=== PATIENT | male | born 1970 | race Caucasian/White ===

== ENCOUNTER → 2023-08-16 06:29 | Day surgery (SDC) | payer OTHER, SELFPAY | LOC: GI 06:29 | PROVIDERS: ATTENDING PHYSICIAN Internal Medicine Gastroenterology | DX: Z12.11 Encounter for screening for malignant neoplasm of colon (principal); K57.30 Diverticulosis of large intestine without perforation or abscess without bleeding; K64.0 First degree hemorrhoids; D12.0 Benign neoplasm of cecum; D12.3 Benign neoplasm of transverse colon; Z80.0 Family history of malignant neoplasm of digestive organs | CPT/HCPCS: 45385; 45381; 45380; 88305 ==

== ENCOUNTER 2023-10-18 06:21 | Day surgery (SDC) | payer OTHER, SELFPAY ==
[2023-10-18 06:55] VITALS: BMI 33.7
[2023-10-18 07:02] VITALS: BP 139/83
[2023-10-18 07:11] VITALS: BMI 33.7
[2023-10-18 09:20] VITALS: BP 92/59
[2023-10-18 09:35] VITALS: BP 98/60
[2023-10-18 09:50] VITALS: BP 104/78
== END 2023-10-18 10:09 | disposition home or self-care (01) ==
LOC: GI 06:21
PROVIDERS: ATTENDING PHYSICIAN Internal Medicine Gastroenterology
DX: D12.3 Benign neoplasm of transverse colon (principal); K57.30 Diverticulosis of large intestine without perforation or abscess without bleeding; K64.0 First degree hemorrhoids
CPT/HCPCS: 45390; 88305

== ENCOUNTER → 2024-05-09 06:18 | Day surgery (SDC) | payer OTHER, SELFPAY ==
[2024-05-09 09:34] LABS: Glucose - Point of Care 99 mg/dl (70-99)
== END ==
LOC: GI 06:18
PROVIDERS: ATTENDING PHYSICIAN Internal Medicine Gastroenterology
DX: Z12.11 Encounter for screening for malignant neoplasm of colon (principal); D12.7 Benign neoplasm of rectosigmoid junction; D12.8 Benign neoplasm of rectum; K62.1 Rectal polyp; K64.0 First degree hemorrhoids; Z86.0100 Personal history of colon polyps, unspecified
CPT/HCPCS: 45385; 88305; 82962